=== PATIENT | male | born 1995 | race Caucasian/White ===

== ENCOUNTER 2023-05-14 06:08 | Day surgery (SDC) | payer BC ==
[2023-05-13 11:58] VITALS: BMI 32.6
[2023-05-14 07:15] LABS: Bacteria/HPF None Seen HPF (None Seen); Bilirubin Negative (Negative); Blood, Urine Negative (Negative); Clarity Clear (Clear); Glucose, Urine (Dipstick) Normal (Negative); Ketone, Urine Negative (Negative); Leukocyte Negative Leu/uL (Negative); Nitrite Negative (Negative); Protein, Urine (Dipstick) Negative (Neg-Trace); RBC/HPF 0-3 HPF (0-3); Specific Gravity, Urine 1.018 (1.002-1.036); Squamous Epithelial None Seen HPF (0-3); Urobilinogen Normal mg/dL (Less than 2); WBC/HPF 0-3 HPF (0-3); pH, Urine 6.5 (5.0-9.0)
[2023-05-14 07:36] LABS: #Basophils 0.1 thou/uL (0.0-0.2); #Eosinphils 0.3 thou/uL (0.0-0.7); #Monocytes 0.8 thou/uL (0.11-0.59); #Neutrophils 3.9 thou/uL (1.40-6.50); %Basophils 1.1 % (0.0-1.0); %Eosinophils 3.5 % (0.0-10.0); %Monocytes 11.4 % (0.0-10.0); %Neutrophils 54.3 % (42.0-75.0); Hemoglobin 15.9 g/dL (14.0-18.0); Mean Corpuscular HGB CONC 33.8 g/dL (32.0-36.0); Mean Corpuscular Hemoglobin 30.7 pg (27.0-31.0); Mean Corpuscular Volume 90.7 fl (78.0-98.0); Mean Platelet Volume 9.8 fL (7.4-10.4); Platelet Count 268 10x3/uL (130-400); RBC Distribution Width 12.2 % (11.5-14.5); Red Blood Cell (RBC) Count 5.18 mill/uL (4.70-6.10); White Blood Cell (WBC) Count 7.2 10x3/uL (4.8-10.8)
[2023-05-14 07:57] LABS: Prothrombin Time 13.4 sec (12.0-14.7)
[2023-05-14 07:58] LABS: PTT 30.9 sec (22.9-36.1)
[2023-05-14 08:12] LABS: Anion Gap 13 mmol/L (10-20); BUN (Urea Nitrogen) 12 mg/dL (8.9-20.6); Calc. Creatinine Clearance 177 mL/min (70-130); Calcium 8.5 mg/dL (7.8-10.44); Carbon Dioxide 21 mmol/L (22-29); Chloride 107 mmol/L (98-107); Estimated GFR 122; Glucose 92 mg/dL (70-105); Sodium 137 mmol/L (136-145)
[2023-05-14] MEDS ORDERED: CEFAZOLIN 2 GM VIAL ONE (08:21)
[2023-05-14 08:22] LABS: Sex Hormone Binding Globulin 17.9 nmol/L (11-78)
[2023-05-14] MEDS ORDERED: Sodium Chloride 0.9% 100 ML ONE (08:22)
[2023-05-14] MEDS ORDERED: Midazolam HCl 2 mg/2 ml Vial ONE (08:29)
[2023-05-14] MEDS ORDERED: Bacitracin Zinc Ointment 30 gm TUBE ONE (08:38)
[2023-05-14] MEDS ORDERED: Bupivacaine 0.25% HCL 30 ML VIAL ONE (08:38)
[2023-05-14 08:52] LABS: Albumin (w/Testosterone Panel) 4.6 g/dL
[2023-05-14] MEDS ORDERED: Ketorolac Tromethamine 30 MG/ML VIAL ONE (09:00)
[2023-05-14] MEDS ORDERED: Lidocaine 1% PF 5 ML VIAL ONE (09:00)
[2023-05-14] MEDS ORDERED: Ondansetron PF 4 MG/2 ML Vial ONE (09:00)
[2023-05-14] MEDS ORDERED: Glycopyrrolate 0.2 MG/ML 5 ML SYRINGE ONE (09:00)
[2023-05-14] MEDS ORDERED: PROPOFOL 200 MG/20 ML VIAL ONE (09:00)
[2023-05-14] MEDS ORDERED: Dexamethasone 20 MG/5 ML VIAL ONE (09:00)
[2023-05-14] MEDS ORDERED: Dexmedetomidine 200 MCG/2 ML VIAL ONE (09:01)
[2023-05-14] MEDS ORDERED: PROPOFOL 20 ML ONE (09:02)
[2023-05-14] MEDS ORDERED: fentaNYL PF 100 MCG/2 ML SYRINGE ONE (09:02)
[2023-05-14] MEDS ORDERED: Vancomycin 1 GM VIAL ONE (09:46)
[2023-05-14] MEDS ORDERED: fentaNYL 50 mcg/mL 1 mL Vial ONE ×3 (10:49→11:20)
[2023-05-14] MEDS ORDERED: Iopamidol-370 76% 500 ML MDV (1 ML CHARGE) ONE (10:55)
[2023-05-14 11:00] LABS: Testosterone, Free 125.3 pg/mL (47-244)
[2023-05-14 11:07] LABS: Follicle Stimulating Hormone 0.85 mIU/mL (See Ranges); Luteinizing Hormone 0.47 mIU/mL (See Ranges)
[2023-05-14] MEDS ORDERED: Morphine 2 MG/ML VIAL ONE (12:04)
[2023-05-14] MEDS ORDERED: HYDROmorphone 0.5 MG/0.5 ML SYRINGE ONE (12:28)
== END 2023-05-14 13:10 | disposition home or self-care (01) ==
LOC: SDC 06:08
PROVIDERS: ATTEND Urology
PROC: 0VB90ZZ Excision of Right Testis, Open Approach (ICD-10-PCS; principal; 2023-05-14)
DX: C62.91 Malignant neoplasm of right testis, unspecified whether descended or undescended (principal); D07.69 Carcinoma in situ of other male genital organs
CPT/HCPCS: 36415; 71260; 74178; 80048; 81001; 82105; 82670; 83001; 83002; 83615; 84270; 84403; 84702; 85025; 85610; 85730; 87086; 88305; 88309; 88331; C1889; J1100; J1170; J1885; J2250; J2272; J2405; J2704; J3010; J3370; J3490; Q9967; S0020